=== PATIENT | female | born 1975 | race Caucasian/White ===

== ENCOUNTER → 2016-04-07 | Outpatient (CLI) | payer BC ==
[~2016-04-07] MED LIST: ASPI81TA28 PO; CHOL100010 PO; CNC/27 PO; LAMO100T16 PO; LAMO200T PO; SYN75 PO
--- NOTE | 2016-04-08 16:42 | MAMMOGRAPHY REPORT ---
UNILATERAL RIGHT DIGITAL DIAGNOSTIC MAMMOGRAM TOMOSYNTHESIS WITH CAD AND TARGETED RIGHT ULTRASOUND: 04/07/2016 CLINICAL HISTORY: 41-year-old woman presents for a follow-up in the right breast status post benign ultrasound-guided core biopsy. She has a history of a surgical excisional biopsy in the inferior ri ght breast for a symptomatic/painful cyst. She had an ultrasound guided core biopsy in the 4:00 to 5:00 right breast in 2012 which yielded a benign fibroadenoma. She had a fine-needle aspiration in the pathology department in 2015 for a palpable area in the inferior right breast which yielded atyp ia. Subsequent core biopsy did not demonstrate any atypia. She presents for follow-up. There are also currently 2-3 palpable lumps in the inferior right breast. TECHNIQUE: Right breast tomosynthesis in addition to standard 2D mammography was performed. Current study was also evaluated with a Computer Aided Detection (CAD) system. COMPARISON: Comparison is made to exams dated: 07/22/2015 ultrasound biopsy, 07/22/2015 aspiration, mammogram, and 07/03/2015 mammogram - [facility]. BREAST COMPOSITION: The tissue of the right breast is extremely dense, which lowers the sensitivity of mammography. FINDINGS: A ribbon-shaped metallic biopsy marker is visualized in the 5:00 to 6:00 far posterior ri ght breast on both views. A second metallic biopsy marker within a biopsy proven fibroadenoma seen on ultrasound in the 5:00 right breast, 6 cm from the nipple is not included within the field of vie w. The remainder of the breast parenchymal pattern is unchanged compared to prior exams. No suspic ious mass, architectural distortion or cluster of microcalcifications is seen. Targeted ultrasound was performed in the inferior right breast in 3 areas of palpable concern which were pointed out by the patient. Note is made of a visible skin incision in the approximate 5:00 ri ght breast near the inframammary fold, denoting the site of previous excision of a tender cyst. In the most medial palpable area, along the surgical scar in the right 5:30 breast, 7 cm from the nippl e, there is a lobulated circumscribed parallel hypoechoic solid mass. An internal ribbon clip is id entified within. This measures proximately 11.6 x 6.1 x 11.6 mm and is consistent with the biopsy-p roven fibroadenoma. In the area of second palpable lump which the patient reports is less mobile th an previous, there is mixed echogenicity dense glandular tissue. A linear biopsy marker clip is see n within this area as well. This is located in the right 6:00 breast, 7 cm from the nipple. No dis crete measurable mass is seen in this area and pathology results were benign. Slightly more lateral in the right 7:00 breast, no discrete solid or cystic mass is identified. IMPRESSION: ACR BI-RADS CATEGORY 0: INCOMPLETE EVALUATION: NEED ADDITIONAL IMAGING EVALUATION, TAR GETED ULTRASOUND ACR BI-RADS CATEGORY 0: INCOMPLETE EVALUATION: NEED ADDITIONAL IMAGING EVALUATION 1. 2 of the 3 palpable lumps in the inferior right breast correlate with areas that were previously biopsied. The more medial lump deep to the surgical scar is a fibroadenoma and the firm palpable l ump in the 6:00 right breast yielded benign pathology at ultrasound-guided core biopsy. However, pr ior to core biopsy the patient had a fine needle aspiration based on palpation in the pathology depa rtment which yielded atypia. Given that this area seems less mobile to the patient, or is changing based on her description, this remains an indeterminate finding. 2. I would recommend a bilateral breast MRI to assess for any abnormal enhancement or suspicious enh ancing mass in the area of concern, as a skin marker can be placed overlying the the area of concern during MRI, to exclude any possibility of sampling error during core needle biopsy, particularly gi dimitrios the palpable change reported by the patient. These recommendations were discussed with the patient. Approximately 10% of breast cancers are not detected with mammography. A negative mammographic repor t should not delay biopsy if a clinically suggestive mass is present. Roseanne Sims M.D. ay/:04/08/2016 16:37:06 Linux Consultant: Lupe [employer]AN[employer](Zach)(Gwendolyn), [facility] letter sent: Addl Imaging 0 BI-RADS Code: ACR BI-RADS Category 0: Incomplete Evaluation: Need Additional Imaging Evaluation Ul trasound BI-RADS: ACR BI-RADS Category 0: Incomplete Evaluation: Need Additional Imaging Evaluation
== END | disposition home or self-care (01) ==
LOC: C.MAMM 09:25
PROVIDERS: ATTEND Surgery
DX: N63 Unspecified lump in breast (principal); D24.1 Benign neoplasm of right breast

== ENCOUNTER → 2016-04-23 | Outpatient (CLI) | payer BC ==
[~2016-04-23] MED LIST changes: +GADAVIST IV PRN
--- NOTE | 2016-04-23 16:43 | MAMMOGRAPHY REPORT ---
BREAST MRI OF BOTH BREASTS : 04/23/2016 CLINICAL HISTORY: The patient is status post ultrasound-guided core needle biopsy for a right breast mass in 2012 which yielded a benign fibroadenoma. She had a fine-needle aspiration in the pathology department in 2015 for a palpable area in the inferior right breast which yielded atypia. Subseque nt core biopsy did not demonstrate any atypia. She currently feels 2-3 palpable lumps in the right inferior breast, as reported on the recent diagnostic mammograms/ultrasound report. COMPARISON: Comparison is made to exams dated: 04/07/2016 mammogram, 07/22/2015 mammogram, 07/03/2015 ma mmogram, 08/28/2014 mammogram, 02/16/2012 mammogram, and 03/06/2012 ultrasound biopsy - [facility]. Technique: The patient was placed prone in a dedicated breast imaging coil. Precontrast axial T1-we ighted, axial T2-weighted fat saturation, and axial T1-weighted fat saturation images were obtained. After the administration of 5.5 mL of Gadavist IV contrast, sequential T1-weighted fat saturation images were obtained. Subtraction images were obtained of the dynamic contrast enhanced sequences, and 3-D reformations were performed. The [employer] software was used for kinetic analysis. Findings: Right breast: There is an oval circumscribed enhancing T2 hyperintense 12 millimeter mass in the rig ht 5:30 breast, which demonstrates a mixed persistent/plateau kinetic pattern. This has been previo usly biopsied and is consistent with a benign fibroadenoma. Slightly anterior and lateral to this m ass is clip artifact from prior ultrasound-guided biopsy which yielded benign pathology. There is n o suspicious enhancing mass or other abnormal enhancement within the right breast. Specifically, th ere is no suspicious abnormal enhancement in the right 5 to 7:00 breast in the region of the palpabl e findings described on the recent diagnostic report. Given the lack of abnormality on all imaging modalities, findings are likely benign. Multiple scattered T2 hyperintense, nonenhancing masses are seen, consistent with cysts. Left breast: There is mild background parenchymal enhancement. There are no suspicious enhancing ma sses or areas of abnormal non-mass enhancement within the left breast. Multiple scattered T2 hyperi ntense, nonenhancing masses are seen, consistent with cysts. There is no evidence of axillary adenopathy. The chest wall structures are negative. Extramammary soft tissues are unremarkable. IMPRESSION: ACR BI-RADS CATEGORY 2: BENIGN Enhancing 12 mm mass in the right 5:30 breast, consistent with biopsy-proven fibroadenoma. No MRI e vidence of malignancy in either breast. Specifically, there is no suspicious abnormal enhancement s een within the right inferior breast in the general region of the palpable lumps reported by the pat ient on the recent diagnostic workup. Given the lack of suspicious abnormality on all imaging modal ities, findings are considered benign. Recommend continued clinical follow-up. Return to annual ma mmogram schedule is also recommended. Kristel Haji M.D. 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
== END | disposition home or self-care (01) ==
LOC: C.MRI 09:16
PROVIDERS: ATTEND Surgery
DX: N63 Unspecified lump in breast (principal)

== ENCOUNTER → 2016-06-04 | Outpatient (CLI) | payer BC ==
[~2016-06-04] MED LIST changes: -GADAVIST IV PRN
== END | disposition home or self-care (01) ==
LOC: C.PAPS 16:07
PROVIDERS: ATTEND Obstetrics & Gynecology
DX: Z01.419 Encounter for gynecological examination (general) (routine) without abnormal findings (principal)

== ENCOUNTER → 2016-07-30 | Outpatient (CLI) | payer BC ==
--- NOTE | 2016-08-02 13:17 | MAMMOGRAPHY REPORT ---
BILATERAL DIGITAL SCREENING MAMMOGRAM TOMOSYNTHESIS WITH CAD: 07/30/2016 TECHNIQUE: Breast tomosynthesis in addition to standard 2D mammography was performed. Current study was also evaluated with a Computer Aided Detection (CAD) system. COMPARISON: Comparison is made to exams dated: 04/23/2016 breast MRI, 04/07/2016 ultrasound, 04/07/2016 m ammogram, 07/22/2015 ultrasound biopsy, 07/22/2015 aspiration, and 07/22/2015 mammogram - [facility]. BREAST COMPOSITION: The tissue of both breasts is extremely dense, which lowers the sensitivity of m ammography. FINDINGS: No suspicious masses, calcifications, or areas of architectural distortion are noted in ei ther breast. There has been no significant interval change compared to prior exams. A biopsy marker clip is again noted in the right inferior and slightly medial breast. A few scattered bilateral geovani gn-appearing calcifications are noted. Bilateral asymmetries are stable. IMPRESSION: ACR BI-RADS CATEGORY 2: BENIGN There is no mammographic evidence of malignancy. A 1 year screening mammogram is recommended. The pa tient will receive written notification of the results. Approximately 10% of breast cancers are not detected with mammography. A negative mammographic report should not delay biopsy if a clinically suggestive mass is present. Kristel Haji M.D. /:07/30/2016 16:21:13 Doll Surgeon: Tish CLEANING(R)(Gwendolyn), [facility] letter sent: Normal 1/2 BI-RADS Code: ACR BI-RADS Category 2: Benign
== END | disposition home or self-care (01) ==
LOC: C.MAMM 14:17
PROVIDERS: ATTEND Surgery
DX: Z12.31 Encounter for screening mammogram for malignant neoplasm of breast (principal)

== ENCOUNTER → 2017-03-29 | Outpatient (CLI) | payer BC | END | disposition home or self-care (01) | LOC: C.LABSPEC 17:23 | PROVIDERS: ATTEND Physician Assistant | DX: N94.9 Unspecified condition associated with female genital organs and menstrual cycle (principal) ==